=== PATIENT | male | born 1970 | race Caucasian/White ===

== ENCOUNTER 2022-03-21 02:23 | Emergency (ER) | payer BC, SELFPAY ==
[2022-03-21 02:24] VITALS: BP 137/99; PULSE 76; RESP 15; TEMP 36.6; O2SAT 98; BMI 35.4
--- NOTE | 2022-03-21 03:21 | EDS_ITS ---
HPI History of Present Illness Chief Complaint: Eye Problem Narrative Narrative: Patient is a 51-year-old male with no significant reported past medical history. He states 2 to 3 days ago he was working underneath his car and later that night felt pain and irritation in his left eye. He denies any change in vision and he denies any contact lens use. He states he has been flushing his eye but despite this he has been having persistent pain and irritation mainly to the left upper eyelid and secondary to this comes in for evaluation. PFSH PFS Medical History no medical history Home Medications doxycycline hyclate 100 mg capsule 100 mg PO BID 7 days #14 caps 03/21/22 [Rx Last Taken Unknown] oyiyeugr-llfabspii-gyvnntop 3.5 mg/mL-10,000 unit/mL-0.1% eye drops (Maxitrol) 2 drp LEFT EYE 4X/DAY 7 days #5 mL 03/21/22 [Rx Last Taken Unknown] Allergy/AdvReac Type Severity Reaction Status Date / Time No Known Allergies Allergy Verified 03/21/22 02:30 Surgical History no surgical history Social History Smoking Status: Current every day smoker tobacco type: cigarettes ROS ROS ED Constitutional Constitutional ED: Denies chills or fever(s) Eyes Eyes: Reports other Details: Positive left eye pain ; Denies blurry vision or change in vision ENT ENT ED: Denies sore throat Cardiovascular Cardiovascular: Denies chest pain Respiratory/Chest Respiratory/Chest: Denies cough or dyspnea Gastrointestinal Gastrointestinal: Denies abdominal pain, diarrhea, nausea or vomiting Genitourinary Genitourinary ED: Denies dysuria Musculoskeletal Musculoskeletal: Denies myalgias Integumentary Reports other Details: Positive left eyelid redness and swelling ; Denies rash Neurologic Neurologic: Denies headache(s) Hematologic/Lymphatic Hematologic/Lymphatic: Denies easy bleeding or easy bruising EXAM Physical Exam Const Vital Signs: 03/21/22 02:24 Temperature 97.9 F Temperature Source Oral Pulse Rate 76 Respiratory Rate 15 Blood Pressure 137/99 H Blood Pressure Mean 111 Pulse Ox 98 Oxygen Delivery Method Room Air Positive well nourished and well developed General Appearance ED: well developed Eyes PERRL and EOMs intact bilaterally Eyes Narrative: There is mild scleral injection noted. No obvious foreign body. There is soft tissue swelling and erythema to the left upper eyelid and when the upper eyelid is everted there is no foreign body but there is and internal hordeolum noted. Slit-lamp exam reveals no uptake of fluorescein dye no retained foreign body and no corneal abrasion. Remainder of the exam is normal Neck supple Resp normal respiratory effort and clear to auscultation bilaterally Cardio regular rate and regular rhythm Extremity normal to inspection Neuro oriented x3 and CN's II-XII intact bilaterally Sensorium / Orientation: alert Psych mental status grossly normal Skin Skin Narrative: Soft tissue swelling with erythema to the left upper eyelid as documented above MDM MDM MDM Narrative Medical decision making narrative: Patient presented to the ER afebrile and in no acute distress. He reported a se nsation like there was something in his eye but there was no change in vision no light sensitivity. Physical exam revealed no obvious foreign body or corneal abrasion but did show changes consistent with internal hordeolum. At this time there is no obvious abscess to drain so he will be placed on oral antibiotics as well as antibiotic drops but as he does not have change in vision or signs of gl obe injury there is no need for emergent ophthalmology consultation and patient is otherwise safe for discharge Discharge Plan Triage Chief Complaint: Eye Problem ED Provider: Sebastian Mccollum Dx/Rx/DC Orders Clinical Impression: Internal hordeolum of left eye Instructions: ED Meibomian Gland Blockage, ED Sty Prescriptions: New neomycin-polymyxin B-dexameth [Maxitrol] 3.5mg/mL-10,000 unit/mL-0.1 % drops,suspension 2 drp LEFT EYE 4X/DAY 7 Days Qty: 5 0RF doxycycline hyclate 100 mg capsule 100 mg PO BID 7 Days Qty: 14 0RF Primary Care Provider: Care Physician,No Primary Referrals: Marley Owens MD [Med Staff - [employer]] - 1 Week Frantz Bryan MD [Med Staff - Active Staff] - 3-5 Days if not improving Care Physician,No Primary [Primary Care Provider] - Disposition Disposition: Home, Self Care Discharge Date/Time: 03/21/22 03:41
[2022-03-21] MEDS: Fluorescein 1 MG STRIP 1 STRIP LEFT EYE (03:32)
[2022-03-21] MEDS: Tetracaine 0.5% Ophthalmic Bottle 1 DRP LEFT EYE (03:33)
[2022-03-21 03:41] VITALS: PULSE 74; RESP 18; O2SAT 97
== END 2022-03-21 03:41 | disposition home or self-care (01) ==
PROVIDERS: Emergency Provider Emergency Medicine; Visit Provider Emergency Medicine
DX: H00.026 Hordeolum internum left eye, unspecified eyelid (principal); F17.210 Nicotine dependence, cigarettes, uncomplicated
CPT/HCPCS: 99283

== ENCOUNTER 2022-04-20 15:42 | Emergency (ER) | payer BC, SELFPAY ==
[2022-04-20 15:42] VITALS: BP 146/102; PULSE 71; RESP 18; O2SAT 96
[2022-04-20 15:43] VITALS: BP 133/119; PULSE 78; RESP 14; TEMP 36.3; O2SAT 99; BMI 34.4
--- NOTE | 2022-04-20 16:07 | CT_ITS ---
STUDY: CT Abdomen And Pelvis W/O Contrast Injection 04/20/2022 5:26 PM REASON FOR EXAM: Male, 51 years old. ABDOMINAL PAIN Pain TECHNIQUE: Transaxial images were obtained without oral contrast, and without intravenous contrast. Individualized dose optimization techniques were used for this CT. COMPARISON: None. FINDINGS: The visualized lung bases are unremarkable. The visualized portions of the heart are within normal limits. Unremarkable liver. Unremarkable gallbladder and extrahepatic biliary system. Unremarkable spleen. Unremarkable pancreas. Unremarkable bilateral adrenal glands. No acute findings of the right kidney. No acute findings of the left kidney. Unremarkable visualized stomach. Unremarkable small intestine. Unremarkable colon. There is non-visualization of the appendix. There are calcifications of the abdominal aorta. This is consistent for atherosclerotic disease. There is no abdominal aortic aneurysm. Unremarkable inferior vena cava. Subcentimeter mesenteric lymph nodes. Unremarkable urinary bladder. There are prostatic calcifications. There is an umbilical hernia containing fat. There are diffuse degenerative changes of the visualized lumbar spine. CT/Abdomen/Pelvis without Cont IMPRESSION: (NOT LISTED IN ORDER OF SIGNIFICANCE) Constipation. Other findings as above. Electronically Signed: Caio Aguilar MD at 17:28 EDT Reading Location ID and State: [facility] / [place] , Service support ,
--- NOTE | 2022-04-20 16:09 | EX.ED.DYSGE1 ---
HPI History of Present Illness Chief Complaint: Abd Pain Narrative Narrative: Patient presents with abdominal pain that is generalized since last night. He feels like he has to have a bowel movement in which case his pain will be gone. He has no nausea or vomiting. He denies constipation he normally has normal bowel movements except today he does not feel like he can go. He has no back pain or tearing sensation no prior abdominal surgeries. PFSH PFS Medical History Alcohol abuse Home Medications polyethylene glycol 3350 17 gram/dose oral powder (Miralax) 34 g PO TID #238 grams 04/20/22 [Rx Last Taken Unknown] Allergy/AdvReac Type Severity Reaction Status Date / Time No Known Allergies Allergy Verified 04/20/22 15:43 Social History Smoking Status: Current every day smoker tobacco type: cigarettes ROS ROS ED ROS Narrative Past medical history: Reviewed, he tells me he has no medical problems Medications: Reviewed Social history: Noncontributory Review of systems: All systems negative except as indicated General: No fever Eyes: No visual changes ENT: No upper airway congestion, normal voice Neck: No neck pain Cardiovascular: No chest pain Respiratory: No shortness of breath or cough Gastrointestinal: As in HPI Genitourinary: No dysuria Musculoskeletal: Denies myalgias no difficulty with ambulation Skin: No rash Neurological: No memory loss, confusion or any focal weakness Psych: No recent behavioral changes Hematologic: No easy bleeding or easy bruising EXAM Physical Exam Narrative Exam Narrative: Physical exam General: Patient is laying flat on the bed he tells me that is more comfortable he appears somewhat uncomfortable as I walk in the room Head: Normocephalic, Atraumatic Eyes: Conjunctiva not pale ENT: Moist mucous membranes Neck: Supple, Nontender, No lymphadenopathy Cardiovascular: Regular rate, Regular rhythm Respiratory: No distress, CTA bilaterally Abdomen: Soft, patient has epigastric and lower abdominal pain, there is no guarding or rebound. No specific pain in McBurney's no specific pain in the right upper quadrant and his Ortez's is negative. Back: Nontender, Normal Inspection. Negative for: CVA tenderness Extremities: Nontender, No edema Skin: Normal color, No rash Neurological: Alert, Normal Strength, Normal Sensation Psychological: Normal affect Const Vital Signs: 04/20/22 15:43 04/20/22 15:42 Temperature 97.3 F L Temperature Source Temporal Pulse Rate 78 71 Respiratory Rate 14 18 Blood Pressure 133/119 H 146/102 H Blood Pressure Mean 123 116 Pulse Ox 99 96 Oxygen Delivery Method Room Air Room Air MDM MDM MDM Narrative Medical decision making narrative: Patient's work-up is unremarkable, he does have evidence of constipation. I will treat that. Otherwise I will discharge in stable condition. Lab Data Labs: Laboratory Results - last 24 hr 04/20/22 04/20/22 16:14 16:14 WBC 10.8 RBC 5.25 Hgb 16.3 Hct 46.2 MCV 88.0 MCH 31.0 MCHC 35.3 RDW Std Deviation 42.8 RDW Coeff of Doroteo 13.2 Plt Count 253 MPV 9.5 Immature Gran % (Auto) 0.700 Neut % (Auto) 66.4 Lymph % (Auto) 16.6 L Hendricks % (Auto) 14.0 H Eos % (Auto) 1.8 Baso % (Auto) 0.5 Absolute Neuts (auto) 7.2 Absolute Lymphs (auto) 1.78 Nucleated RBC % 0 Sodium 138 Potassium 3.9 Chloride 105 Carbon Dioxide 25.0 Anion Gap 8 BUN 15 Creatinine 1.00 Estim Creat Clear Calc 86.41 Est GFR (MDRD) Af Amer 101 Est GFR (MDRD) Non-Af 83 BUN/Creatinine Ratio 15.0 Glucose 118 H Calcium 8.6 Total Bilirubin 0.30 AST 13 L ALT 27 Alkaline Phosphatase 95 Total Protein 6.7 Albumin 3.4 Globulin 3.3 Albumin/Globulin Ratio 1.0 Lipase 128 Radiography Diagnostic Testing: Clinical Impression(s) from Imaging Studies Abdomen/Pelvis CT 04/20/22 16:07 IMPRESSION: (NOT LISTED IN ORDER OF SIGNIFICANCE) Constipation. Other findings as above. Electronically Signed: Caio Aguilar MD at 17:28 EDT , Discharge Plan Triage Chief Complaint: Abd Pain ED Provider: Francisco Solano Dx/Rx/DC Orders Clinical Impression: Abdominal pain, Acute constipation Instructions: Eating a High-Fiber Diet, ED Constipation (Adult) Prescriptions: New polyethylene glycol 3350 [Miralax] 17 gram/dose powder 34 g PO TID Qty: 238 0RF Primary Care Provider: Care Physician,No Primary Referrals: Care Physician,No Primary [Primary Care Provider] - 3-5 Days Disposition Disposition: Home, Self Care
[2022-04-20] MEDS: Dicyclomine 20 MG/2 ML Vial IM (16:17)
[2022-04-20 16:29] LABS: Absolute Lymphocyte Count 1.78 X10^3/uL (0.83-4.51); Absolute Neutrophil Count 7.2 X10^3/uL (2.0-7.7); Basophil# 0.05 X10^3/uL; Basophil% 0.5 % (0-1); Eosinophil# 0.19 X10^3/uL; Eosinophils% 1.8 % (0-5); Hematocrit 46.2 % (40-54); Hemoglobin 16.3 g/dL (13.0-16.5); Lymphocyte # 1.78 X10^3/ul (0.83-4.51); Lymphocyte % 16.6 % (19-41); Mean Corp Hgb Conc 35.3 g/dL (32-36); Mean Platelet Vol. 9.5 fl (6.2-12.0); NRBC Flagged by Analyzer 0 % (0-5); Neutrophil # 7.16 X10^3/uL (2.7-7.7); Neutrophil % 66.4 % (47-70); Platelet Count 253 K/mm3 (150-450); RBC Distribution Width CV 13.2 % (11.6-14.6); RBC Distribution Width SD 42.8 fl (35.1-43.9); Red Blood Count 5.25 M/mm3 (4.6-6.2); White Blood Count 10.8 K/mm3 (4.4-11.0)
[2022-04-20 16:34] LABS: AST(SGOT) 13 U/L (15-37); Alanine Aminotransfer ALT/SGPT 27 U/L (16-61); Albumin, Serum 3.4 g/dL (3.2-5.0); Alkaline Phosphatase 95 U/L (45-117); Anion Gap 8 (5-15); BUN 15 mg/dL (7-18); Calcium,Total 8.6 mg/dL (8.5-10.1); Chloride 105 mmol/L (98-107); EST Glomerular Filtration Rate 83 mL/min (>60); Est Glom Filt Rate - Afr Amer 101 mL/min (>60); Estimated Creatinine Clearance 86.41 ml/min; Globulin 3.3 g/dL (2.2-4.2); Glucose 118 mg/dL (74-106); Lipase 128 U/L (73-393); Potassium 3.9 mmol/L (3.5-5.1); Protein, Total 6.7 g/dL (6.4-8.2); Sodium Level 138 mmol/L (136-145)
== END 2022-04-20 17:58 | disposition home or self-care (01) ==
PROVIDERS: Emergency Provider Emergency Medicine; Visit Provider Emergency Medicine
DX: R10.9 Unspecified abdominal pain (principal); F17.210 Nicotine dependence, cigarettes, uncomplicated; K59.00 Constipation, unspecified
CPT/HCPCS: 74176; 80053; 83690; 85025; 96372; 99283; A4216

== ENCOUNTER 2022-12-31 07:55 | Emergency (ER) | payer BC, SELFPAY ==
[2022-12-31 07:55] VITALS: BP 157/98; PULSE 104; RESP 18; TEMP 36.2; O2SAT 97; BMI 34.7
--- NOTE | 2022-12-31 08:23 | US_ITS ---
STUDY: SCROTUM ULTRASOUND REASON FOR EXAM: Male, 52 years old. 2 day history of left testicular swelling. TECHNIQUE: Ultrasound evaluation of the scrotum was performed with color Doppler and static hinojosa-scale imaging. COMPARISON: None. FINDINGS: RIGHT TESTICLE INTRATESTICULAR: There is a normal size of the right testicle. The right testicle measures 2.7 cm x 2.3 cm x 1.6 cm. There is a homogenous echotexture. There is normal arterial and normal venous vascularity. There is no demonstrated right testicular mass or cyst. EXTRATESTICULAR: The epididymis is normal in size. The epididymis head measures 0.7 cm x 1.3 cm x 0.9 cm. There is normal vascularity of the epididymis. There is no demonstrated epididymal cystic structure. There is a small hydrocele. There is no demonstrated varicocele. There is no demonstrated extratesticular mass or cyst. LEFT TESTICLE INTRATESTICULAR: There is a normal size of the left testicle. The left testicle measures 3.6 cm x 2.4 cm x 2.5 cm. There is a homogenous echotexture. There is normal arterial and normal venous vascularity. There is no demonstrated left testicular mass or cyst. EXTRATESTICULAR: The epididymis is enlarged. The epididymis head measures 1 cm x 1.8 cm x 1.5 cm. There is increased (hyperemic) vascularity of the epididymis. There is no demonstrated epididymal cystic structure. There is a moderate size hydrocele. There is no demonstrated varicocele. There is no demonstrated extratesticular mass or cyst. US/Testicular with Arterial Flow IMPRESSION: Bilateral hydroceles left greater than right. Enlargement of the left epididymis with increased vascularity suggestive of acute epididymitis. Electronically Signed: Viet Plummer MD at 9:53 EDT ,
[2022-12-31] MEDS: Diphth,Pertuss(Acell),Tet Vac 0.5 ML Vial IM (08:30)
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
--- NOTE | 2022-12-31 11:17 | ED.RN ---
PT AMBULATED FROM ER STATING HE WAS GOING HOME AFTER BEING HERE 4 HRS
== END 2022-12-31 11:19 | disposition left against medical advice (07) ==
LOC: ED 09:00
PROVIDERS: Emergency Provider Emergency Medicine; Visit Provider Emergency Medicine
DX: N45.1 Epididymitis (principal); S01.01XA Laceration without foreign body of scalp, initial encounter; F17.210 Nicotine dependence, cigarettes, uncomplicated; Z23 Encounter for immunization; W22.8XXA Striking against or struck by other objects, initial encounter
CPT/HCPCS: 76870; 90471; 90715; 93976; 99281; 99282

== ENCOUNTER 2023-01-01 04:13 | Emergency (ER) | payer BC, SELFPAY ==
[2023-01-01 04:14] VITALS: BP 151/101; PULSE 100; RESP 20; TEMP 37; O2SAT 95; BMI 36.3
--- NOTE | 2023-01-01 05:15 | EX.ED.GUMALE ---
HPI History of Present Illness Chief Complaint: Male Pain/Injury Informant: patient Narrative Narrative: Patient is a 52-year-old male presenting with continued left-sided scrotal/testicular pain. Patient was seen in our ER yesterday for the same complaint and had an ultrasound performed which showed left-sided epididymitis. Patient had to leave before he could get the results or treatment because I had a 911 call from my son. He worked a 12-hour shift and then came back to the emergency room because the pain was so bad. Patient has not taking thing for pain besides alcohol. Denies any penile discharge or dysuria. Denies any GI symptoms. States he has been in the same monogamous relationship for years and is not concerned for STIs. Does not have a urologist. Is never had any like this before. No other complaints or concerns at this time. PFSH PFSH Medical History Alcohol abuse Home Medications polyethylene glycol 3350 17 gram/dose oral powder (Miralax) 34 g PO TID #238 grams 04/20/22 [Rx Last Taken Unknown] ibuprofen 600 mg tablet 600 mg PO Q6H PRN PRN pain #20 TABLETS 01/01/23 [Rx Last Taken Unknown] sulfamethoxazole 800 mg-trimethoprim 160 mg tablet (Bactrim DS) 1 tab PO Q12H 10 days #20 tabs 01/01/23 [Rx Last Taken Unknown] Allergy/AdvReac Type Severity Reaction Status Date / Time No Known Allergies Allergy Verified 12/31/22 07:57 Social History Smoking Status: Current every day smoker tobacco type: cigarettes ROS ROS ED Constitutional Constitutional ED: Denies chills or fever(s) Gastrointestinal Gastrointestinal: Denies abdominal pain, diarrhea, nausea or vomiting Genitourinary Genitourinary ED: Reports other Details: Left-sided testicular pain and swelling ; Denies dysuria Neurologic Neurologic: Denies headache(s) EXAM Physical Exam Const Vital Signs: 01/01/23 04:14 Temperature 98.6 F Temperature Source Temporal Pulse Rate 100 Respiratory Rate 20 H Blood Pressure 151/101 H Blood Pressure Mean 117 Pulse Ox 95 Oxygen Delivery Method Room Air Positive well nourished and well developed General Appearance ED: well developed and NAD HEENT Reports moist mucous membranes Eyes PERRL and EOMs intact bilaterally Resp normal respiratory effort and clear to auscultation bilaterally Cardio regular rate and regular rhythm GI non-tender and non-distended Palpation: soft Narrative: Circumcised penis. No discharge or lesions appreciated. Patient has asymmetric edema of the left scrotum with tenderness to palpation. Normal lie bilaterally. Normal cremasteric reflexes bilaterally. Extremity normal to inspection General Extremety ED: Negative for edema General Extremity: Negative for edema Neuro oriented x3 Sensorium / Orientation: alert Psych mental status grossly normal MDM MDM MDM Narrative Medical decision making narrative: Patient is returning to the emergency room after eloping. He has already had an ultrasound that shows left epididymitis which is consistent with his clinical presentation. Urinalysis is added on to test for gonorrhea/chlamydia and to make sure he does not have an associated urinary tract infection however I think he is low risk for this and will be treated as likely E. coli as the cause. Patient is counseled on his diagnosis and the plan of care. Is given first dose of Bactrim and ibuprofen in the emergency room. Per current up-to-date guidelines antibiotic of choice for low risk STI cause of epididymitis is either levofloxacin or Bactrim for 10 days. Patient is given a work note. Patient declined any stronger pain medication I feel that is appropriate for she with his history of alcohol use. Is given return precautions. Is given a referral for urology. As has not had a change in his symptoms I do not think repeat work-up is indicated at this time. Discharge Plan Triage Chief Complaint: Male Pain/Injury ED Provider: Annabella Faustin Dx/Rx/DC Orders Clinical Impression: Epididymitis, left Instructions: ED Epididymitis Prescriptions: New sulfamethoxazole-trimethoprim [Bactrim DS] 800-160 mg tablet 1 tab PO Q12H 10 Days Qty: 20 0RF ibuprofen 600 mg tablet 600 mg PO Q6H PRN PRN (Reason: pain) Qty: 20 0RF No Action polyethylene glycol 3350 [Miralax] 17 gram/dose powder 34 g PO TID Qty: 238 0RF Stand Alone Forms: ED Work / School Excuse Primary Care Provider: Care Physician,No Primary Referrals: Hernan Smith MD [Med Staff - Active Staff] - 3-5 Days if not improving Care Physician,No Primary [Primary Care Provider] - Activity Restrictions/Additional Instructions: Take prescribed anti-inflammatories (ibuprofen 600 mg) and your entire course of antibiotics. You may also ice the area as tolerated and with either wear tight fitting underwear or jockstrap to help with comfort. Disposition Disposition: Home, Self Care
[2023-01-01] MEDS: Smz/Tmp Ds Tablet 1 TABLET PO (05:26)
[2023-01-01] MEDS: Ibuprofen 600 MG Tablet PO (05:26)
[2023-01-01 05:27] LABS: Mucous, Urine 0 SEEN /hpf (<or=2+); Red Blood Cells-Urine 0 SEEN /hpf (0-5); Squamous Epithelial Cells - UA 0 SEEN /hpf (0-5)
[2023-01-01 05:32] LABS: Color, Urine Yellow (Yellow); Glucose, Dipstick Normal (Normal); Ketone-Dipstick 5 mg/dl (Negative); Leukocyte Esterase-Dipstick 25 /ul (Negative); Nitrite-Dipstick Negative (Negative); Occult Blood-Urine Negative /ul (Negative); Protein-Dipstick 15 mg/dl (Negative); Specific Gravity, Urine 1.025 (1.002-1.030); Urine Clarity Clear (Clear); Urine Urobilinogen Normal (Normal)
[2023-01-01 05:40] LABS: Urine Bilirubin Dipstick 1 mg/dL (Negative)
[2023-01-01 05:56] LABS: Bacteria 1+ /hpf (None Seen); White Blood Cells 0-5 SEEN /hpf (0-5)
== END 2023-01-01 06:49 | disposition home or self-care (01) ==
PROVIDERS: Emergency Provider Emergency Medicine; Visit Provider Emergency Medicine
DX: N45.1 Epididymitis (principal); F17.210 Nicotine dependence, cigarettes, uncomplicated
CPT/HCPCS: 81001; 87086; 87491; 87591; 99283

== ENCOUNTER 2024-10-16 09:11 | Emergency (ER) | payer BC, SELFPAY ==
[2024-10-16 09:12] VITALS: BP 154/94; PULSE 83; RESP 16; TEMP 36.6; O2SAT 99; BMI 33.0
[2024-10-16] MEDS: Triamcinolone Acetonide 40 MG/ML Vial INTRAARTIC (10:20)
[2024-10-16] MEDS: Bupivacaine Mpf 0.5% 30 ML VIAL INFILT (10:20)
--- NOTE | 2024-10-16 10:21 | ED.RN ---
INJECTION ADMINISTERED TO PT IN THE RIGHT SHOULDER BY DR CORADO
--- NOTE | 2024-10-16 10:24 | EDS_ITS ---
HPI History of Present Illness Chief Complaint: Upper Extremity Injury Informant: patient Narrative Narrative: Patient presents recurrent right shoulder pain after using his right upper extremity more since Thursday. He has had rotator cuff issues in the past he st ates he was evaluated by specialist at [facility] however last shoulder injection was 10 years ago. He states that helped his symptoms. He has not had surgery. States there is never any tears of the rotator cuff. He reported to me bony spurs. Denies any weakness or paresthesias took 2 leads yesterday. He is not established with specialist here locally. Denies diabetes history. Prior similar symptoms: Yes PFSH [facility] Medical History Alcohol abuse Home Medications ?Medication ?Instructions ?Recorded ?Last Taken ?Type NK 10/16/24 Unknown History Allergy/AdvReac Type Severity Reaction Status Date / Time No Known Allergies Allergy Verified 10/16/24 09:19 Social History Smoking Status: Current every day smoker tobacco type: cigarettes ROS ROS ED Constitutional Constitutional ED: Denies chills, fever(s) or sweats ENT ENT ED: Denies sore throat Cardiovascular Cardiovascular: Denies chest pain, leg edema, palpitations or racing heartbeat Respiratory/Chest Respiratory/Chest: Denies cough, dyspnea or dyspnea on exertion Gastrointestinal Gastrointestinal: Denies abdominal pain, diarrhea, nausea or vomiting Genitourinary Genitourinary ED: Denies dysuria, hematuria or urinary frequency Musculoskeletal Musculoskeletal: Reports extremity pain; Denies back pain or neck pain Integumentary Denies rash or wounds Neurologic Neurologic: Denies headache(s), paresthesias or weakness EXAM Physical Exam Const Vital Signs: 10/16/24 09:12 Temperature 97.9 F Temperature Source Temporal Pulse Rate 83 Respiratory Rate 16 Blood Pressure 154/94 H Blood Pressure Mean 114 Pulse Ox 99 Oxygen Delivery Method Room Air Positive well nourished and well developed General Appearance ED: well developed and NAD HEENT Reports moist mucous membranes normocephalic and atraumatic Eyes General Eye ED: Yes normal appearance of both eyes Neck full ROM Chest Wall Chest: Negative for tenderness Resp normal respiratory effort and normal air movement Effort and Inspection: symmetric chest movement; Negative for respiratory distress Cardio regular rate, regular rhythm and no murmurs Peripheral Pulses: pulses 2+ throughout GI normal to inspection, nondistended, normoactive bowel sounds and non-tender Palpation: Negative for guarding or rebound tenderness present Extremity Extremity Narrative: Right upper extremity: No redness no warmth no deformities of the shoulder and pain with movement shoulders AB duction. Palpation posterior shoulder was tender. General Extremety ED: Yes tenderness; Negative for edema General Extremity: Negative for edema Neuro oriented x3 and no sensory deficits noted Sensorium / Orientation: awake and alert Skin no rashes or lesions noted and no wounds MDM MDM MDM Narrative Medical decision making narrative: Interventions / MDM: Differential diagnosis: Right shoulder pain, history of bony spurs, rotator cuff injury Diagnosis considered but do not suspect: no clinical septic joint, no clinical Necrotizing fasciitis. No trauma for concerns for fracture. My EKG interpretation: N/A Imaging independently reviewed and interpreted by myself: N/A External documents reviewed: N/A Test considered but not ordered: X-rays however no trauma. ED course: Nontoxic vital stable. No clinical signs of infection. History of similar from rotator cuff issues in the past with personal tears. No surgical intervention. He is requesting injection of this joint. He is not diabetic. He does not see anybody locally at this time. Last injection was 10 years ago. Procedure note: Joint injection. Written consent obtained. Risk benefits and alternatives discussed. Skin was prepped with alcohol pads. 40 mg IM Kenalog along with additional 3 cc 0.5% bupivacaine use posterior posterior of the shoulder, one half needle used. Placed posteriorly, aspirated with no blood, injected with no complications. Bandage over the wound. Patient tolerated the procedure well. Injection performed on any complications. He is referred to local orthopedics. He will continue his Aleve. All questions were answered. Re-evaluation: stable Disposition discussed with patient/family/significant other: Patient Case discussed with consulting clinician: N/A This note was generated with [employer] dictation software. It may contain incorrect words, spelling, and punctuation that were not noted in checking the note before signing. Discharge Plan Triage Chief Complaint: Upper Extremity Injury ED Provider: Shai Alva Dx/Rx/DC Orders Clinical Impression: Acute shoulder pain, Pain in right shoulder Instructions: ED Shoulder Pain, Uncertain Cause Prescriptions: No Action NK Primary Care Provider: Care Physician,No Primary Referrals: Michael Escobedo MD [Med Staff - Active Staff] - 1-2 Weeks Care Physician,No Primary [Primary Care Provider] - Activity Restrictions/Additional Instructions: Status post 40 mg Kenalog and bupivacaine placement into your right shoulder with posterior approach today. Continue yearly. Follow-up with Dr. Escobedo. Print Language: Albanian Disposition Disposition: Home, Self Care
[2024-10-16 10:35] VITALS: BP 138/76; PULSE 84; RESP 16; TEMP 36.6; O2SAT 98
== END 2024-10-16 10:36 | disposition home or self-care (01) ==
PROVIDERS: Emergency Provider Emergency Medicine; Visit Provider Emergency Medicine
DX: M25.511 Pain in right shoulder (principal); F17.210 Nicotine dependence, cigarettes, uncomplicated
CPT/HCPCS: 20610; 99282